=== PATIENT | male | born 1965 | race Caucasian/White ===

== ENCOUNTER 2018-01-12 09:29 | Observation (INO) | payer SELFPAY ==
[~2018-01-12] VITALS: Ht 177.8 cm; Wt 75.0 kg
[2018-01-12 09:32] VITALS: BP 153/93; PULSE 71; RESP 18; TEMP 98; O2SAT 99
--- NOTE | 2018-01-12 09:38 | PD ---
HPI Chief Complaint: Chest Pain Time Seen by Provider: 09:38 Travel History International Travel<30 days: No Contact w/Intl Traveler<30days: No Traveled to known affect area: No History of Present Illness HPI 52-year-old male came to the emergency room with history of left-sided chest pain on and off for few days but worse since this morning. No radiation of the pain. Patient has extensive coronary artery disease history with multiple bypass surgeries and multiple stents. Last stent was in 2013. Patient has not been on medications or seen a gold buyer since then. Patient says he has been having trouble finding a gold buyer. He continues to smoke. Pain comes and goes on its own. No aggravating or relieving factors identified. It is a sharp pain as per the patient. Vital signs are stable. Patient is concerned that he is having another heart attack because it felt similar to his previous heart attacks. [facility] Past Medical History Narrative Medical List of his past medical, surgical, social and family history reviewed from the nursing note. Asthma: No Blood Disorders: No Anxiety: Yes Depression: Yes Heart Rhythm Problems: Yes Cancer: No Cardiac Catheterization: Yes Cardiovascular Problems: Yes ([place], BYPASS) High Cholesterol: Yes Chemotherapy: No Chest Pain: Yes Congestive Heart Failure: No COPD: No Coronary Artery Disease: Yes Diabetes: No Diminished Hearing: No Endocrine: No Genitourinary: No Hypertension: Yes Immune Disorder: No Musculoskeletal: No Neurologic: No Psychiatric: Yes Reproductive: No Respiratory: No Immunizations Current: Yes Myocardial Infarction: Yes Radiation Therapy: No Sleep Apnea: No Thyroid Disease: No Triglycerides - High: Yes Past Surgical History Body Medical Devices: titanium in feet Cardiac Surgery: Yes (CORONARY STENTS X 2) Coronary Artery Bypass Graft: Yes Coronary Stent: Yes Other Surgery: Yes (see hx) Family History Family Hypercholesterolemia: Yes Social History Alcohol Use: No Tobacco Use: Yes (1 PPD) Substance Use: Yes (cocaine) Allergies-Medications (Allergen,Severity, Reaction): Coded Allergies: No Known Allergies (Verified Allergy, Unknown, 01/12/18) Comments No known drug allergies. Reported Meds & Prescriptions Reported Meds & Active Scripts Active No Active Prescriptions or Reported Medications Narrative Medication List of his home medications reviewed from the nursing note. Review of Systems Except as stated in HPI: all other systems reviewed are Neg Cardiovascular: Positive: Chest Pain or Discomfort Physical Exam Narrative GENERAL: Awake, alert, anxious, moderate distress SKIN: Focused skin assessment warm/dry. HEAD: Atraumatic. Normocephalic. EYES: Pupils equal and round. No scleral icterus. No injection or drainage. ENT: No nasal bleeding or discharge. Mucous membranes pink and moist. NECK: Trachea midline. No JVD. CARDIOVASCULAR: Regular rate and rhythm. No murmur appreciated. RESPIRATORY: No accessory muscle use. Clear to auscultation. Breath sounds equal bilaterally. GASTROINTESTINAL: Abdomen soft, non-tender, nondistended. Hepatic and splenic margins not palpable. MUSCULOSKELETAL: No obvious deformities. No clubbing. No cyanosis. No edema. NEUROLOGICAL: Awake and alert. No obvious cranial nerve deficits. Motor grossly within normal limits. Normal speech. PSYCHIATRIC: Appropriate mood and affect; insight and judgment normal. Data Data Last Documented VS Vital Signs Date Time Temp Pulse Resp B/P (MAP) Pulse Ox O2 Delivery O2 Flow Rate FiO2 01/12/18 10:41 65 150/95 (113) 01/12/18 09:32 98.0 18 99 Orders Orders Electrocardiogram (01/12/18 09:50) Basic Metabolic Panel (Bmp) (01/12/18 09:50) Complete Blood Count With Diff (01/12/18 09:50) Magnesium (Mg) (01/12/18 09:50) Prothrombin Time / Inr (Pt) (01/12/18 09:50) Troponin I (01/12/18 09:50) Ecg Monitoring (01/12/18 09:50) Bilateral Bp Monitoring (01/12/18 09:50) Iv Access Insert/Monitor (01/12/18 09:50) Oximetry (01/12/18 09:50) Oxygen Administration (01/12/18 09:50) Aspirin Chew (Aspirin Chew) (01/12/18 10:00) Sodium Chloride 0.9% Flush (Ns Flush) (01/12/18 10:00) Nitroglycerin Sl (Nitrostat Sl) (01/12/18 10:00) Chest, Pa & Lat (01/12/18 09:50) Admit Order (Ed Use Only) (01/12/18 10:42) Labs Laboratory Tests Test 01/12/18 09:50 White Blood Count 7.2 TH/MM3 Red Blood Count 5.19 MIL/MM3 Hemoglobin 15.6 GM/DL Hematocrit 46.2 % Mean Corpuscular Volume 89.0 FL Mean Corpuscular Hemoglobin 30.1 PG Mean Corpuscular Hemoglobin Concent 33.8 % Red Cell Distribution Width 13.2 % Platelet Count 246 TH/MM3 Mean Platelet Volume 7.9 FL Neutrophils (%) (Auto) 57.9 % Lymphocytes (%) (Auto) 24.8 % Monocytes (%) (Auto) 10.5 % Eosinophils (%) (Auto) 6.0 % Basophils (%) (Auto) 0.8 % Neutrophils # (Auto) 4.2 TH/MM3 Lymphocytes # (Auto) 1.8 TH/MM3 Monocytes # (Auto) 0.8 TH/MM3 Eosinophils # (Auto) 0.4 TH/MM3 Basophils # (Auto) 0.1 TH/MM3 CBC Comment DIFF FINAL Differential Comment Prothrombin Time 10.4 SEC Prothromb Time International Ratio 1.0 RATIO Blood Urea Nitrogen 10 MG/DL Creatinine 0.89 MG/DL Random Glucose 119 MG/DL Calcium Level 9.0 MG/DL Magnesium Level 2.1 MG/DL Sodium Level 140 MEQ/L Potassium Level 3.9 MEQ/L Chloride Level 104 MEQ/L Carbon Dioxide Level 30.6 MEQ/L Anion Gap 5 MEQ/L Estimat Glomerular Filtration Rate 89 ML/MIN Troponin I LESS THAN 0.02 NG/ML MDM Medical Decision Making Medical Screen Exam Complete: Yes Emergency Medical Condition: Yes Medical Record Reviewed: Yes Interpretation(s) Twelve-lead EKG was reviewed by me. Normal sinus rhythm, left axis deviation, right bundle branch block, bradycardia. Heart rate of 58 bpm. Differential Diagnosis ACS, non-STEMI, atypical chest pain Narrative Course Chest x-ray is unremarkable. Given his extensive history and outstanding risk factors I have decided to admit him to the chest pain center. I have discussed this with patient the patient and he is agreeable to the plan. Procedures EKG Prior to Arrival: No Diagnosis Primary Impression: Chest pain Qualified Codes: R07.9 - Chest pain, unspecified Admitting Information Admitting Physician Requests: Observation Scripts No Active Prescriptions or Reported Meds Humberto Stevenson MD Jan 12, 2018 09:38
[2018-01-12] MEDS ORDERED: ASPIRIN 81 MG CHEW TAB PO ONE (10:00)
[2018-01-12] MEDS ORDERED: SODIUM CHLORIDE 0.9% FLUSH 10 ML FLUSH IVF PRN (10:00)
[2018-01-12] MEDS ORDERED: NITROGLYCERIN 0.4 MG SL 25 TABS/BTL SL ONE (10:00)
[2018-01-12 10:05] LABS: AUTOMATED NEUTROPHIL # 4.2 TH/MM3 (1.8-7.7); BASOPHIL # 0.1 TH/MM3 (0-0.2); BASOPHIL % 0.8 % (0.0-2.0); EOSINOPHIL # 0.4 TH/MM3 (0-0.4); HEMATOCRIT 46.2 % (39.0-51.0); HEMOGLOBIN 15.6 GM/DL (13.0-17.0); LYMPH % 24.8 % (9.0-44.0); LYMPHOCYTE # 1.8 TH/MM3 (1.0-4.8); MEAN CORPUSCULAR HEMOGLOBIN 30.1 PG (27.0-34.0); MEAN CORPUSCULAR HGB CONC 33.8 % (32.0-36.0); MEAN PLATELET VOLUME 7.9 FL (7.0-11.0); MONO % 10.5 % (0.0-8.0); MONOCYTE # 0.8 TH/MM3 (0-0.9); NEUT % 57.9 % (16.0-70.0); PLATELET COUNT 246 TH/MM3 (150-450); RED BLOOD COUNT 5.19 MIL/MM3 (4.50-5.90); RED CELL DISTRIBUTION WIDTH 13.2 % (11.6-17.2); WHITE BLOOD COUNT 7.2 TH/MM3 (4.0-11.0)
--- NOTE | 2018-01-12 10:19 | RADRPT ---
EXAM DATE/TIME: 01/12/2018 10:08 [facility] COMPARISON: No previous studies available for comparison. INDICATIONS : Chest pain. MEDICAL HISTORY : Hypertension. Congestive heart failure. Myocardial infarction. SURGICAL HISTORY : CABG. ENCOUNTER: Initial ACUITY: 1 week PAIN SCORE: 9/10 LOCATION: Left lower chest FINDINGS: PA and lateral views of the chest demonstrate the lungs to be symmetrically aerated without evidence of mass, infiltrate or effusion. The heart size is normal. Postsurgical changes related to prior CABG surgery. Osseous structures are intact. CONCLUSION: No acute disease. Cassie Esparza MD on January 12, 2018 at 10:16 Board Certified Radiologist. This report was verified electronically.
[2018-01-12 10:26] LABS: PROTHROMBIN TIME - PATIENT 10.4 SEC (9.8-11.6)
[2018-01-12 10:32] LABS: BICARBONATE 30.6 MEQ/L (21.0-32.0); BLOOD UREA NITROGEN 10 MG/DL (7-18); CHLORIDE 104 MEQ/L (98-107); CREATININE 0.89 MG/DL (0.60-1.30); GLOMERULAR FILTRATION RATE 89 ML/MIN (>89); GLUCOSE,RANDOM 119 MG/DL (74-106); MAGNESIUM 2.1 MG/DL (1.5-2.5); SODIUM (NA) 140 MEQ/L (136-145)
[2018-01-12 10:36] LABS: TROPONIN I LESS THAN 0.02 NG/ML (0.02-0.05)
[2018-01-12 10:41] VITALS: BP 150/95; PULSE 65
[2018-01-12] MEDS ORDERED: ACETAMINOPHEN 500 MG CPLT PO PRN (11:45)
[2018-01-12] MEDS ORDERED: ONDANSETRON HCL 4 MG/2 ML VIAL IV PUSH PRN (11:45)
[2018-01-12] MEDS ORDERED: NITROGLYCERIN 0.4 MG SL 25 TABS/BTL SL PRN (11:45)
[2018-01-12 12:46] VITALS: BP 142/85
--- NOTE | 2018-01-12 16:48 | EKG ---
Date Performed: 01/12/2018 Time Performed: 09:39:05 PTAGE: 52 years EKG: SINUS BRADYCARDIA BORDERLINE LEFT AXIS DEVIATION RIGHT BUNDLE BRANCH BLOCK ABNORMAL ECG PREVIOUS TRACING : 08/05/2016 13.25 Since previous tracing, no significant change noted DOCTOR: Jeyson Soliz Interpretating Date/Time 01/12/2018 16:46:53
[2018-01-12] MEDS ORDERED: SODIUM CHLORIDE 0.9% FLUSH 10 ML FLUSH IV FLUSH SCH (21:00)
[2018-01-13] MEDS ORDERED: ASPIRIN 325 MG TAB PO SCH (09:00)
--- NOTE | 2018-01-13 15:42 | EKG ---
Date Performed: 01/12/2018 Time Performed: 13:02:52 PTAGE: 52 years EKG: SINUS BRADYCARDIA RIGHT BUNDLE BRANCH BLOCK ABNORMAL ECG PREVIOUS TRACING : 01/12/2018 09.39 DOCTOR: Ozzy Rubin Interpretating Date/Time 01/13/2018 15:41:06
== END 2018-01-12 14:10 | disposition left against medical advice (07) ==
LOC: NEPC 09:29 → NEDA 10:43
DX: R07.89 Other chest pain (principal); I25.10 Atherosclerotic heart disease of native coronary artery without angina pectoris; R94.31 Abnormal electrocardiogram [ECG] [EKG]; I25.2 Old myocardial infarction; I10 Essential (primary) hypertension; E78.00 Pure hypercholesterolemia, unspecified; F17.200 Nicotine dependence, unspecified, uncomplicated; F41.9 Anxiety disorder, unspecified; F32.9 Major depressive disorder, single episode, unspecified; Z95.1 Presence of aortocoronary bypass graft
CPT/HCPCS: 71046; 80048; 83735; 84484; 85025; 85610; 93005; 99285; G0378

== ENCOUNTER 2018-08-08 00:18 | Observation (INO) ==
[2018-08-08] MEDS ORDERED: Sod Chloride 0.9% Inj 1,000 ML IV.SIG ONE (00:36)
[2018-08-08] MEDS ORDERED: Morphine Inj 4 MG/ML Vial IV.PUSH ONE ×2 (00:36→01:31)
--- NOTE | 2018-08-08 00:40 | ED ---
HPI General Chief Complaint: Chest Pain Stated Complaint: Chest pains, poss LOC, fall Time Seen by Provider: 08/08/18 00:28 Source: patient and old records reviewed Mode of arrival: ambulatory Limitations: no limitations History of Present Illness MD complaint: Reports chest pain STEMI Alert: No Onset (ago): week(s) (1) Duration: constant and progressively worsening Onset: during rest Pain location: Reports left chest Severity: severe Severity scale (1-10): 10 Quality: Reports similar to prior [place] Pain radiation: Reports LUE Relieving factors: nothing Exacerbating factors: exertion Associated symptoms: Reports dyspnea; Denies nausea, vomiting and diaphoresis Treatments prior to arrival chest pain: Reports aspirin Related Data Home Medications Medication Instructions Recorded Confirmed Unable to Obtain Home Meds 08/08/18 08/08/18 Allergies Allergy/AdvReac Type Severity Reaction Status Date / Time No Known Allergies Allergy Verified 08/08/18 01:08 Review of Systems ROS: all other systems reviewed are negative PMFSH History History Provided By: Patient and Medical Record Medical History Medical History High cholesterol (Acute) Hypertension (Acute) Surgical History Surgical History History of heart artery stent (Acute) History of heart bypass surgery (Acute) Social History Social History Substance History: No History of Abuse Second Hand Smoke Exposure: Yes Smoking Status: Current every day smoker Tobacco Type: Cigarettes How Often Do You Have a Drink Containing Alcohol: Never Recent Travel in [facility] within the Last 8 Weeks: No Recent Out of Country Travel within the Last 8 Weeks: No Exam Narrative Exam Narrative: GENERAL: Alert and oriented in no distress well-nourished. Well -developed SKIN: Focused skin assessment warm/dry. HEAD: Atraumatic. Normocephalic. EYES: Pupils equal and round. No scleral icterus. No injection or drainage. ENT: No nasal bleeding or discharge. Mucous membranes pink and moist. NECK: Trachea midline. No JVD. CARDIOVASCULAR: Regular rate and rhythm. No murmur appreciated. RESPIRATORY: No accessory muscle use. Clear to auscultation. Breath sounds equal bilaterally. GASTROINTESTINAL: Abdomen soft, non-tender, nondistended. Hepatic and splenic margins not palpable. MUSCULOSKELETAL: No obvious deformities. No clubbing. No cyanosis. No edema. NEUROLOGICAL: Awake and alert. No obvious cranial nerve deficits. Motor grossly within normal limits. Normal speech. PSYCHIATRIC: Appropriate mood and affect; insight and judgment normal. Course Reevaluation(s) Reevaluation #1: Patient states that his pain is returning and is not stabbing sharp last a few seconds repeat IV morphine. Time: 01:15 Initial Documented Vital Signs Temperature 98.1 F 08/08/18 00:21 Pulse Rate 88 08/08/18 00:21 Respiratory Rate 16 08/08/18 00:21 Blood Pressure 155/84 H 08/08/18 00:21 Pulse Oximetry 99 08/08/18 00:21 Last Documented Vital Signs Temperature 98.5 F 08/08/18 00:23 Pulse Rate 71 08/08/18 02:16 Respiratory Rate 18 08/08/18 02:16 Blood Pressure 134/75 08/08/18 02:16 Pulse Oximetry 99 08/08/18 02:16 Medical Decision Making MDM Narrative Medical decision making narrative: Initial cardiac workup has been negative for signs of acute ischemia. Due to medical history significant for coronary artery disease will admit to observation unit to rule out acute coronary syndrome. Stable vitals. Analgesia provided troponin is negative EKG not suggestive of a STEMI. Mild hypokalemia of 3.3 was addressed with 40 mEq p.o. Medical Screen Exam Complete: Yes Emergency Medical Condition: Yes Medical Records Medical records reviewed: Yes I reviewed the patient's medical records. Lab Data Lab results reviewed: Yes I reviewed the patient's lab results. Result diagrams: 08/08/18 00:57 08/08/18 00:57 Lab Results 08/08/18 08/08/18 08/08/18 Range/Units 00:57 00:57 00:57 WBC 9.2 (4.0-11.0) th/mm3 RBC 5.29 (4.50-5.90) mil/mm3 Hgb 16.0 (13.0-17.0) gm/dL Hct 48.0 (39.0-51.0) % MCV 90.7 (80.0-100.0) fL MCH 30.3 (27.0-34.0) pg MCHC 33.4 (32.0-36.0) % RDW 14.3 (11.6-17.2) % Plt Count 229 (150-450) th/mm3 MPV 8.3 (7.0-11.0) fL Neut % (Auto) 57.8 (16.0-70.0) % Lymph % (Auto) 27.7 (9.0-44.0) % [place] % (Auto) 10.4 H (0.0-8.0) % Eos % (Auto) 3.2 (0.0-4.0) % Baso % (Auto) 0.9 (0.0-2.0) % Neut # (Auto) 5.3 (1.8-7.7) th/mm3 Lymph # (Auto) 2.6 (1.0-4.8) th/mm3 [place] # (Auto) 1.0 H (0.0-0.9) th/mm3 Eos # (Auto) 0.3 (0.0-0.4) th/mm3 Baso # (Auto) 0.1 (0.0-0.2) th/mm3 WBC Differential . Differential Comment Auto diff final PT 10.7 (9.8-11.6) sec INR 1.1 Ratio APTT 27.9 (23.4-31.7) sec Sodium 141 (136-145) meq/L Potassium 3.3 L (3.5-5.1) meq/L Chloride 102 (98-107) meq/L Carbon Dioxide 32.0 (21.0-32.0) meq/L Anion Gap 7 (5-15) meq/L BUN 12 (7-18) mg/dL Creatinine 0.98 (0.60-1.30) mg/dL Estimated GFR 80 L (>89) mL/min Random Glucose 70 L (74-106) mg/dL Calcium 8.9 (8.5-10.1) mg/dL Total Creatine Kinase 162 (39-308) U/L Troponin I Less than 0.02 L (0.02-0.05) ng/mL Urine Opiates Screen (Neg) Ur Barbiturates Screen (Neg) Ur Amphetamines Screen (Neg) U Benzodiazepines Scrn (Neg) Urine Cocaine Screen (Neg) U Cannabinoids Screen (Neg) 08/08/18 Range/Units 02:20 WBC (4.0-11.0) th/mm3 RBC (4.50-5.90) mil/mm3 Hgb (13.0-17.0) gm/dL Hct (39.0-51.0) % MCV (80.0-100.0) fL MCH (27.0-34.0) pg MCHC (32.0-36.0) % RDW (11.6-17.2) % Plt Count (150-450) th/mm3 MPV (7.0-11.0) fL Neut % (Auto) (16.0-70.0) % Lymph % (Auto) (9.0-44.0) % [place] % (Auto) (0.0-8.0) % Eos % (Auto) (0.0-4.0) % Baso % (Auto) (0.0-2.0) % Neut # (Auto) (1.8-7.7) th/mm3 Lymph # (Auto) (1.0-4.8) th/mm3 [place] # (Auto) (0.0-0.9) th/mm3 Eos # (Auto) (0.0-0.4) th/mm3 Baso # (Auto) (0.0-0.2) th/mm3 WBC Differential Differential Comment PT (9.8-11.6) sec INR Ratio APTT (23.4-31.7) sec Sodium (136-145) meq/L Potassium (3.5-5.1) meq/L Chloride (98-107) meq/L Carbon Dioxide (21.0-32.0) meq/L Anion Gap (5-15) meq/L BUN (7-18) mg/dL Creatinine (0.60-1.30) mg/dL Estimated GFR (>89) mL/min Random Glucose (74-106) mg/dL Calcium (8.5-10.1) mg/dL Total Creatine Kinase (39-308) U/L Troponin I (0.02-0.05) ng/mL Urine Opiates Screen Pos H (Neg) Ur Barbiturates Screen Neg (Neg) Ur Amphetamines Screen Neg (Neg) U Benzodiazepines Scrn Neg (Neg) Urine Cocaine Screen Neg (Neg) U Cannabinoids Screen Pos H (Neg) Imaging Data Radiologist's impression: Chest X-Ray 08/08/18 00:36 CONCLUSION: No acute cardiopulmonary disease. ECG Data EKG Prior to Arrival: No Attestation: I personally reviewed and interpreted this ECG as follows: Prior ECG tracings: available for review Interpretation: Normal sinus rhythm 79 bpm. Left atrial enlargement. Sinus rhythm. Left axis deviation. Right bundle branch block. Nonspecific ST-T wave abnormalities. QTC 439 ms. MS interval 188 ms. Discharge Plan Discharge Disposition Patient Disposition: 30 Still Patient Discharge Condition Condition: Good Discharge Details Diagnosis: Atypical chest pain, Acute hypokalemia Physicians Team ED Provider: Roberto Lake Primary Care Provider: Primary Care Jayde Mo Attending Provider: Jeyson Soliz Status ED Status: Left Department Discharge Information Discharge Date/Time: 08/08/18 03:33
[2018-08-08 01:16] LABS: Baso # (Auto) 0.1 th/mm3 (0.0-0.2); Baso % (Auto) 0.9 % (0.0-2.0); Eos # (Auto) 0.3 th/mm3 (0.0-0.4); Eos % (Auto) 3.2 % (0.0-4.0); Lymph # (Auto) 2.6 th/mm3 (1.0-4.8); Lymph % (Auto) 27.7 % (9.0-44.0); Mean Corpuscular HGB Conc 33.4 % (32.0-36.0); Mean Corpuscular Hemoglobin 30.3 pg (27.0-34.0); Mean Corpuscular Volume 90.7 fL (80.0-100.0); Mean Platelet Volume 8.3 fL (7.0-11.0); Mono % (Auto) 10.4 % (0.0-8.0); Neut # (Auto) 5.3 th/mm3 (1.8-7.7); Neut % (Auto) 57.8 % (16.0-70.0); Platelet Count 229 th/mm3 (150-450); Red Blood Count 5.29 mil/mm3 (4.50-5.90); Red Cell Distribution Width 14.3 % (11.6-17.2); White Blood Count 9.2 th/mm3 (4.0-11.0)
--- NOTE | 2018-08-08 01:25 | XR ---
EXAM DATE: 08/08/2018 12:54 AM EDT AGE/SEX: 52 years / Male INDICATIONS: Chest pain. CLINICAL DATA: This is the patient's initial encounter. Patient reports that signs and symptoms have been present for 1 week and indicates a pain score of 10/10. MEDICAL/SURGICAL HISTORY: . Hypertension. Congestive heart failure. Myocardial infarction. CA BG. Bilateral feet. COMPARISON: No prior exams available for comparison. FINDINGS: The cardiac silhouette is normal in transverse diameter. The lungs are free of acute parenchymal opac ity. No effusions are identified. Median sternotomy wires are present. CONCLUSION: No acute cardiopulmonary disease. Electronically signed by: Ozzy Evans MD 08/08/2018 1:24 AM EDT
[2018-08-08 01:27] LABS: Activated Partial Thrombo Time 27.9 sec (23.4-31.7); INR 1.1 Ratio; Prothrombin Time 10.7 sec (9.8-11.6)
[2018-08-08 01:35] LABS: Anion Gap 7 meq/L (5-15); Blood Urea Nitrogen 12 mg/dL (7-18); Calcium 8.9 mg/dL (8.5-10.1); Chloride 102 meq/L (98-107); Glomerular Filtration Rate 80 mL/min (>89); Glucose,Random 70 mg/dL (74-106); Potassium 3.3 meq/L (3.5-5.1); Sodium 141 meq/L (136-145)
[2018-08-08 01:38] LABS: Creatine Kinase 162 U/L (39-308)
[2018-08-08 02:56] LABS: Amphetamine Screen,Urine Neg (Neg); Barbiturate Screen,Urine Neg (Neg); Cannabinoid Screen,Urine Pos (Neg); Cocaine Screen,Urine Neg (Neg); Opiate Screen,Urine Pos (Neg)
[2018-08-08 04:38] LABS: Creatine Kinase 117 U/L (39-308)
[2018-08-08 07:37] LABS: Creatine Kinase 108 U/L (39-308)
[2018-08-08] MEDS ORDERED: Regadenoson Inj 0.4 MG/5 ML Syringe IV.PUSH ONE (10:11)
--- NOTE | 2018-08-08 10:18 | P.HPCA ---
History of Present Illness Primary Care Physician: No Primary Care Physician Chief Complaint: Chest pain History of Present Illness: This is a 52-year-old male with history of CAD that has had a three-vessel bypass 2011, stent to the RCA in 2014 which time he was a non-STEMI, hypertension, hyperlipidemia, tobacco abuse, and noncompliance with his medication and follow-up that presents to ED with complaint of 1 week constant left-sided chest discomfort. Stabbing discomfort. Found nothing to worsen or improve it. He at times short of breath and diaphoretic with it denies nausea. Really cannot recall symptoms when he needed bypass and stenting to compare with. States he has not seen a delivery crew worker or primary care physician in a few years. He states he has had no medication for at least 2-1/2 years. Continues to smoke cigarettes. History of CAD as he has had a CABG as well as a stent since then. Hypertension and hyperlipidemia. Tobacco abuse. Noncompliance. Denies any knowledge of diabetes. There is family history of CAD. Patient smoked 1 pack a series daily for 42 years. He admits to obtaining opiates and marijuana on the streets. Has occasional alcohol. - Diagnosis (1) Chest pain (2) History of coronary artery disease (3) History of coronary artery bypass graft x 3 (4) History of heart artery stent (5) Hypertension (6) Hyperlipidemia (7) Tobacco abuse (8) Noncompliance Review of Systems General: Patient denies fevers, chills, and recent travel. HEENT: Patient denies headache, sore throat, difficulty swallowing. Cardiovascular: Has the chest discomfort as mentioned above. Denies sensation of heart beating rapidly or irregularly. No syncope. At times diaphoretic. Respiratory: At times short of breath. Denies inspirational chest discomfort. Denies coughing wheezing or hemoptysis. GI: Patient denies nausea, vomiting, diarrhea, abdominal pain, bloody stools. Musculoskeletal: Patient denies joint pain or edema. Denies calf pain or edema. Neurovascular: Patient denies numbness, tingling, weakness in extremities. Denies headache. Endocrine: Denies polyuria and polydipsia. Hematologic: Denies easy bruising. Skin: Denies rash or itching. PMFSH - History History Provided By: Patient, Medical Record - Medical History Medical History: Medical History (Last Reviewed 08/08/18 @ 00:39 by Roberto Lake DO) High cholesterol Hypertension - Surgical History Surgical History: Surgical History (Last Reviewed 08/08/18 @ 00:39 by Roberto Lake DO) History of heart artery stent History of heart bypass surgery - Tobacco History Second Hand Smoke Exposure: Yes Tobacco Use In Past 30 Days: Yes Smoking Status: Current every day smoker Tobacco Type: Cigarettes - Alcohol History How Often Do You Have a Drink Containing Alcohol: Never - Substance Use History Substance History: No History of Abuse - Travel History Recent Travel in the [place] Within the Last 8 Weeks: No Recent Travel Out of the Country Within the Last 8 Weeks: No - Immunization History Tetanus Immunization: <5 Years Medications and Allergies Active Medications: Active Medications Hydrocodone Bitart/Acetaminophen ([place] 7.5/325) 1 tab PO Q6H PRN PRN Reason: PAIN 4-8 Last Admin: 08/08/18 06:44 Dose: 1 tab Sodium Chloride (Ns Flush) 2 ml IV.FLUSH BID KATARINA Last Admin: 08/08/18 09:35 Dose: Not Given Sodium Chloride (Ns Flush) 2 ml IV.FLUSH PRN PRN PRN Reason: FLUSH AFTER USING IV ACCESS Allergies Allergy/AdvReac Type Severity Reaction Status Date / Time No Known Allergies Allergy Verified 08/08/18 01:08 Home Medications Medication Instructions Recorded Confirmed Type Unable to Obtain Home Meds 08/08/18 08/08/18 History Exam Vital signs: Vital Signs 08/08/18 00:21 08/08/18 00:23 08/08/18 01:33 Temperature 98.1 F 98.5 F Pulse Rate 88 90 77 Respiratory Rate 16 20 16 Blood Pressure 155/84 H 156/78 H 123/77 Pulse Oximetry 99 100 99 08/08/18 02:16 08/08/18 03:46 08/08/18 08:00 Temperature 98.4 F 97.8 F Pulse Rate 71 75 61 Respiratory Rate 18 17 16 Blood Pressure 134/75 128/83 120/71 Pulse Oximetry 99 98 94 L Intake & Output 08/07/18 08/08/18 08/08/18 18:59 06:59 18:59 Intake Total 1000 / 1000 Balance 1000 / 1000 Weight 74.843 kg Intake: IV 1000 / 1000 NS Inj 1,000 ML @ Wide Open IV. 1000 / 1000 SIG BOLUS ONE Rx#:[id number] Other: # Voids 1 Date of Last Bowel Movement 08/08/18 Weight On Admission 747.843 kg Narrative: GENERAL: This is a well-nourished, well-developed patient, in no apparent distress. Patient speaks in clear complete sentences. Patient is pleasant. HEENT: Head is atraumatic and normocephalic. Neck is supple without lymphadenopathy and trachea is midline. No JVD or carotid bruits. CARDIOVASCULAR: Regular rate and rhythm without murmurs, gallops, or rubs. RESPIRATORY: Clear to auscultation. Breath sounds equal bilaterally. No wheezes , rales, or rhonchi. Chest wall is nontender. No use of accessory muscles. GASTROINTESTINAL: Abdomen is nontender, nondistended. Abdomen soft. No obvious pulsatile mass or bruit. No CVA tenderness. Strong femoral pulses bilaterally. Normal bowel sounds in all quadrants. MUSCULOSKELETAL: Patient is moving upper and lower extremities freely. No calf tenderness or edema, no Homans sign. Strong pulses in upper and lower extremities. NEUROLOGICAL: Patient is alert and oriented. Cranial nerves 2-12 are grossly intact. No focal deficits and speech is clear. SKIN: No rash and turgor is normal. Results 08/08/18 00:57 08/08/18 00:57 Cardiac Enzymes 08/08/18 08/08/18 08/08/18 Range/Units 00:57 03:40 06:30 Troponin I Less than 0.02 L Less than 0.02 L Less than 0.02 L (0.02-0.05) ng/mL Coagulation 08/08/18 Range/Units 00:57 PT 10.7 (9.8-11.6) sec APTT 27.9 (23.4-31.7) sec CBC 08/08/18 Range/Units 00:57 WBC 9.2 (4.0-11.0) th/mm3 RBC 5.29 (4.50-5.90) mil/mm3 Hgb 16.0 (13.0-17.0) gm/dL Hct 48.0 (39.0-51.0) % Plt Count 229 (150-450) th/mm3 Neut # (Auto) 5.3 (1.8-7.7) th/mm3 Lymph # (Auto) 2.6 (1.0-4.8) th/mm3 Whitley # (Auto) 1.0 H (0.0-0.9) th/mm3 Eos # (Auto) 0.3 (0.0-0.4) th/mm3 Baso # (Auto) 0.1 (0.0-0.2) th/mm3 Comprehensive Metabolic Panel 08/08/18 Range/Units 00:57 Sodium 141 (136-145) meq/L Potassium 3.3 L (3.5-5.1) meq/L Chloride 102 (98-107) meq/L Carbon Dioxide 32.0 (21.0-32.0) meq/L BUN 12 (7-18) mg/dL Creatinine 0.98 (0.60-1.30) mg/dL Calcium 8.9 (8.5-10.1) mg/dL Intake and Output 08/07/18 08/08/18 08/08/18 22:59 06:59 14:59 Intake Total 1000 / 1000 Balance 1000 / 1000 Intake: IV 1000 / 1000 NS Inj 1,000 ML @ Wide Open IV. 1000 / 1000 SIG BOLUS ONE Rx#:[id number] Other: # Voids 1 Date of Last Bowel Movement 08/08/18 Weight 74.843 kg Weight On Admission 747.843 kg - Imaging and Cardiology Imaging: Impressions Chest X-Ray 08/08/18 00:36 CONCLUSION: No acute cardiopulmonary disease. EKG interpretations - EKG EKG shows: sinus rhythm (EKGs are sinus rhythm with right bundle branch block.) Caprini VTE Risk Assessment Caprini VTE Risk Assessment: No/Low Risk (score <= 1) Caprini Risk Assessment Model: Point Value = 1 Point Value = 2 Point Value = 3 Point Value = 5 Age 41-60 Minor surgery BMI > 25 kg/m2 Swollen legs Varicose veins or History of unexplained or recurrent spontaneous Oral contraceptives or hormone replacement Sepsis (< 1 month) Serious lung disease, including pneumonia (< 1 month) Abnormal pulmonary function Acute myocardial infarction Congestive heart failure (< 1 month) History of inflammatory bowel disease Medical patient at bed rest Age 61-74 Arthroscopic surgery Major open surgery (> 45 min) Laparoscopic surgery (> 45 min) Malignancy Confined to bed (> 72 hours) Immobilizing plaster cast Central venous access Age >= 75 History of VTE Family history of VTE Factor V Leiden Prothrombin [id number] Lupus anticoagulant Anticardiolipin antibodies Elevated serum homocysteine Heparin-induced thrombocytopenia Other congenital or acquired thrombophilia Stroke (< 1 month) Elective arthroplasty Hip, pelvis, or leg fracture Acute spinal cord injury (< 1 month) Prophylaxis Regimen: Total Risk Factor Score Risk Level Prophylaxis Regimen 0-1 Low Early ambulation 2 Moderate Order ONE of the following: *Sequential Compression Device (SCD) *Heparin 5000 units SQ BID 3-4 Higher Order ONE of the following medications: *Heparin 5000 units SQ TID *Enoxaparin/Lovenox 40 mg SQ daily (WT < 150 kg, CrCl > 30 mL/min) *Enoxaparin/Lovenox 30 mg SQ daily (WT < 150 kg, CrCl > 10-29 mL/min) *Enoxaparin/Lovenox 30 mg SQ BID (WT < 150 kg, CrCl > 30 mL/min) AND/OR *Sequential Compression Device (SCD) 5 or more Highest Order ONE of the following medications: *Heparin 5000 units SQ TID (Preferred with Epidurals) *Enoxaparin/Lovenox 40 mg SQ daily (WT < 150 kg, CrCl > 30 mL/min) *Enoxaparin/Lovenox 30 mg SQ daily (WT < 150 kg, CrCl > 10-29 mL/min) *Enoxaparin/Lovenox 30 mg SQ BID (WT < 150 kg, CrCl > 30 mL/min) AND *Sequential Compression Device (SCD) Assessment and Plan - Assessment (1) Chest pain Code(s): R07.9 - Chest pain, unspecified Status: Acute (2) History of coronary artery disease Code(s): Z86.79 - Personal history of other diseases of the circulatory system Status: Acute (3) History of coronary artery bypass graft x 3 Code(s): Z95.1 - Presence of aortocoronary bypass graft Status: Acute (4) History of heart artery stent Code(s): Z95.5 - Presence of coronary angioplasty implant and graft Status: Acute (5) Hypertension Code(s): I10 - Essential (primary) hypertension Status: Acute (6) Hyperlipidemia Code(s): E78.5 - Hyperlipidemia, unspecified Status: Acute (7) Tobacco abuse Code(s): Z72.0 - Tobacco use Status: Acute (8) Noncompliance Code(s): Z91.19 - Patient's noncompliance with other medical treatment and regimen Status: Acute - Plan * Chest pain: Patient does have history of CAD. He has had serial cardiac enzymes and EKGs for ruling out purposes. He will be seen by Dr. Soliz of cardiology in the chest pain center. He will have a Lexiscan and be discharged home if the stress test is nonischemic with instructions to follow-up with a delivery crew worker and primary care physician and be reestablished on medications as prescribed by them. Return to ED for interval issues. * History of CAD status post CABG as well as more recently stenting: Patient to follow-up with cardiology to get restarted on medications. Patient have a Lexiscan. * Hyperlipidemia: He should be on statin therapy she discussed with her primary care physician so they can follow. * Hypertension: He has been normotensive in the chest pain center. Continue monitor. He is to follow-up with his physician to discuss this. * History of noncompliance: Patient states that is been an insurance issue with his insurance and he should follow-up with physicians for management of his illnesses. * Tobacco abuse: Patient counseled on importance of smoking cessation. Patient is stable at this time. He is agreeable to this plan. H&P: Quality - VTE Deep Vein Thrombosis/Pulmonary Embolism Present on Admission: No
--- NOTE | 2018-08-08 11:21 | NM ---
EXAM DATE: 08/08/2018 11:15 AM EDT AGE/SEX: 52 years / Male INDICATIONS:Angina. . Chest pain. CLINICAL DATA: This is the patient's initial encounter. Patient reports that signs and symptoms have been present for 2 days and indicates a pain score of 5/10. MEDICAL/SURGICAL HISTORY: Hypercholesterolemia. Hypertension. Coronary artery stent. CABG. COMPARISON: [facility], MYOCARDIAL PERF PHARM SPECT, 06/01/2015. . DOSE: 8.5 mCi Tc 99m Myoview at rest 25.4 mCi [id number] at stress 0.4 mg Lexiscan STRESS SYMPTOMS: Dyspnea. EJECTION FRACTION: 55 % TECHNIQUE: The patient underwent pharmacologic stress with infusion of prescribed dose. Continuous ECG tracing was monitored during stress. Gated SPECT imaging was performed after stress and conventi onal SPECT imaging was performed at rest. The examination was performed on a SPECT/CT scanner, both attenuation and non-corrected datasets were reviewed. FINDINGS: Distribution: The maximum perfused segment at stress is in the anterolateral wall. Perfusion Study: The pattern of perfusion at stress is within normal limits. Gated Study: There are intact wall motion and wall thickening without hypokinetic or dyskinetic segm ents. The ejection fraction is calculated at 55%. RISK CATEGORY: Low (<1% Annual Motality Rate) CONCLUSION: 1. Left ventricle perfusion is within normal limits. 2. Normal left ventricle wall motion with ejection fraction of 55%. Electronically signed by: Lester Colin MD 08/08/2018 11:19 AM EDT
[2018-08-08 12:20] VITALS: BP 128/71; PULSE 64; RESP 18; TEMP 97.7; O2SAT 99
--- NOTE | 2018-08-08 14:24 | TR ---
Date Performed: 08/08/2018 Time Performed: 10:04:39 DOCTOR: Jeyson Soliz DRUG LIST: CLINICAL HISTORY: REASON FOR TEST: REASON FOR ENDING: OBSERVATION: CONCLUSION: COMMENTS: Lexiscan stress test was performed under standard four minute protocol. Radionuclide was injected one minute prior to ending the test. No electrocardiographic abormalities were present t o suggest ischemia. Nuclear imaging and interpretation are pending.
--- NOTE | 2018-08-08 14:30 | ECG ---
Date Performed: 08/08/2018 Time Performed: 06:28:01 PTAGE: 52 years EKG: Sinus rhythm BORDERLINE LEFT AXIS DEVIATION RIGHT BUNDLE BRANCH BLOCK ABNORMAL ECG Since PREVIOUS TRACING , no significant change noted DOCTOR: Jeyson Soliz Interpretating Date/Time 08/08/2018 14:28:14
--- NOTE | 2018-08-08 14:32 | ECG ---
Date Performed: 08/08/2018 Time Performed: 02:26:26 PTAGE: 52 years EKG: Sinus rhythm BORDERLINE LEFT AXIS DEVIATION RIGHT BUNDLE BRANCH BLOCK ABNORMAL ECG PREVIOUS TRACING : 01/12/2018 13.02 Since previous tracing, no significant change noted DOCTOR: Jeyson Soliz Interpretating Date/Time 08/08/2018 14:31:45
--- NOTE | 2018-08-08 14:32 | ECG ---
Date Performed: 08/08/2018 Time Performed: 03:43:26 PTAGE: 52 years EKG: Sinus rhythm RIGHT BUNDLE BRANCH BLOCK ABNORMAL ECG PREVIOUS TRACING : 08/08/2018 02.26 Since previous tracing, no significant change noted DOCTOR: Jeyson Soliz Interpretating Date/Time 08/08/2018 14:31:25
--- NOTE | 2018-08-08 14:35 | ECG ---
Date Performed: 08/08/2018 Time Performed: 00:34:29 PTAGE: 52 years EKG: Sinus rhythm POSSIBLE LEFT ATRIAL ENLARGEMENT LEFT AXIS DEVIATION RIGHT BUNDLE BRANCH BLOCK ABNORMAL ECG Since PREVIOUS TRACING , no significant change noted DOCTOR: Jeyson Soliz Interpretating Date/Time 08/08/2018 14:34:17
[2018-08-09] MEDS ORDERED: Aspirin 325 MG Tablet PO SCH (09:00)
== END 2018-08-08 14:12 | disposition home or self-care (01) ==
LOC: NEDA 00:18 → NEPC 00:18 → NEDA 03:33 → NEPFCDU 03:36 → NEDA 05:45 → NEPFCDU 05:46